=== PATIENT | female | born 1995 | race American Indian/Alaskan Native ===

== ENCOUNTER 2017-10-09 13:12 | Emergency (ER) | payer SELFPAY ==
[2017-10-09 13:20] VITALS: BP 147/96
--- NOTE | 2017-10-09 15:58 | Emergency Department Report ---
ED Female HPI - General Chief complaint: Urogenital-Female Stated complaint: VAGINAL BURNING Time Seen by Provider: 10/09/17 15:45 Source: patient Mode of arrival: Ambulatory Limitations: No Limitations - History of Present Illness Initial comments: This is a 21-year-old female nontoxic, well nourished in appearance, no acute signs of distress presents to the ED with c/o of dysuria and vaginal irritation x3 days. Patient denies any vaginal pain or swelling. Patient denies any vaginal ulcers or lesions. Patient denies any nausea, vaginal discharge, vaginal bleeding, vomiting, chest pain, shortness of breathe, fever, chills, headache, back pain, numbness, tingling, stiff neck. Patient denies any other urinary symptoms. Patient denies any allergies. PMH includes HTN. MD Complaint: dysuria -: days(s) (3) Radiation: non-radiating Severity: mild Severity scale (0 -10): 3 Quality: burning Consistency: constant Improves with: none Worsens with: urination Are you Now?: No Associated Symptoms: dysuria. denies: vaginal discharge, vaginal bleeding, abdominal pain, nausea/vomiting, fever/chills, headaches, loss of appetite, hematuria, rash, seizure, shortness of breath, syncope, weakness - Related Data Home Medications Medication Instructions Recorded Confirmed Last Taken Ferrous Sulfate [Feosol] 325 mg PO BID 03/31/16 03/31/16 03/31/16 Labetalol [Normodyne TAB] 100 mg PO BID 03/31/16 03/31/16 03/31/16 Vit-Fe Fumar-FA [ 1 tab PO QDAY 03/31/16 03/31/16 03/31/16 Vitamin] Previous Rx's Medication Instructions Recorded Last Taken Type Ibuprofen [Motrin 600 MG tab] 600 mg PO Q6H #50 tablet 04/03/16 Unknown Rx Labetalol [Normodyne TAB] 100 mg PO BID #60 tablet 04/03/16 Unknown Rx Sulfamethoxazole/Trimethoprim 1 each PO BID #14 tablet 10/09/17 Unknown Rx [Bactrim DS TAB] Allergies Allergy/AdvReac Type Severity Reaction Status Date / Time No Known Allergies Allergy Verified 07/29/15 21:35 ED Review of Systems ROS: Stated complaint: VAGINAL BURNING Other details as noted in HPI Constitutional: denies: chills, fever Eyes: denies: eye pain, eye discharge, vision change ENT: denies: ear pain, throat pain Respiratory: denies: cough, shortness of breath, wheezing Cardiovascular: denies: chest pain, palpitations Endocrine: no symptoms reported Gastrointestinal: denies: abdominal pain, nausea, diarrhea Genitourinary: urgency, dysuria, frequency. denies: hematuria, discharge Musculoskeletal: denies: back pain, joint swelling, arthralgia Skin: denies: rash, lesions Neurological: denies: headache, weakness, paresthesias Psychiatric: denies: anxiety, depression Hematological/Lymphatic: denies: easy bleeding, easy bruising ED Past Medical Hx - Past Medical History Hx Hypertension: Yes (cHTN) Hx Congestive Heart Failure: No Hx Diabetes: No Hx Deep Vein Thrombosis: No Hx Renal Disease: No Hx Sickle Cell Disease: No Hx Seizures: No Hx Asthma: No Hx COPD: No Hx HIV: No Additional medical history: murmur - Social History Smoking Status: Never Smoker Substance Use Type: None - Medications Home Medications: Home Medications Medication Instructions Recorded Confirmed Last Taken Type Ferrous Sulfate [Feosol] 325 mg PO BID 03/31/16 03/31/16 03/31/16 History Labetalol [Normodyne TAB] 100 mg PO BID 03/31/16 03/31/16 03/31/16 History Vit-Fe Fumar-FA [ 1 tab PO QDAY 03/31/16 03/31/16 03/31/16 History Vitamin] Ibuprofen [Motrin 600 MG tab] 600 mg PO Q6H #50 tablet 04/03/16 Unknown Rx Labetalol [Normodyne TAB] 100 mg PO BID #60 tablet 04/03/16 Unknown Rx Sulfamethoxazole/Trimethoprim 1 each PO BID #14 tablet 10/09/17 Unknown Rx [Bactrim DS TAB] ED Physical Exam - General Limitations: No Limitations General appearance: alert, in no apparent distress - Head Head exam: Present: atraumatic, normocephalic - Eye Eye exam: Present: normal appearance Pupils: Present: normal accommodation - ENT ENT exam: Present: normal exam, mucous membranes moist - Neck Neck exam: Present: normal inspection, full ROM. Absent: tenderness, meningismus, lymphadenopathy - Respiratory Respiratory exam: Present: normal lung sounds bilaterally. Absent: respiratory distress, wheezes, rales, rhonchi, stridor, chest wall tenderness, accessory muscle use, decreased breath sounds, prolonged expiratory - Cardiovascular Cardiovascular Exam: Present: regular rate, normal rhythm, normal heart sounds. Absent: bradycardia, tachycardia, irregular rhythm, systolic murmur, diastolic murmur, rubs, gallop - GI/Abdominal GI/Abdominal exam: Present: soft, normal bowel sounds. Absent: distended, tenderness, guarding, rebound, rigid, diminished bowel sounds - Rectal Rectal exam: Present: deferred - Extremities Exam Extremities exam: Present: normal inspection, full ROM, normal capillary refill. Absent: tenderness - Back Exam Back exam: Present: normal inspection, full ROM. Absent: tenderness, CVA tenderness (R), CVA tenderness (L), muscle spasm, paraspinal tenderness, vertebral tenderness, rash noted - Neurological Exam Neurological exam: Present: alert, oriented X3, normal gait - Psychiatric Psychiatric exam: Present: normal affect, normal mood - Skin Skin exam: Present: warm, dry, intact, normal color. Absent: rash ED Course Vital Signs 10/09/17 13:17 Temperature 98.4 F Pulse Rate 116 H Respiratory 18 Rate Blood Pressure 147/96 O2 Sat by Pulse 100 Oximetry - Reevaluation(s) Reevaluation #1: 10/09/17 15:59 Patient is speaking in full sentences with no signs of distress noted. ED Medical Decision Making - Medical Decision Making This is a 21-year-old female that presents with UTI. Patient is stable was examined by me. There is no abdominal tenderness. No pelvic pain. UA obtained. Urine culture pending. Patient is d/юлия with Bactrim. Patient was instructed to Follow-up with a primary care doctor in 3-5 days or if symptoms worsen and continue return to emergency room as soon as possible. At time of discharge, the patient does not seem toxic or ill in appearance. No acute signs of distress noted. Patient agrees to discharge treatment plan of care. No further questions noted by the patient. Critical care attestation.: If time is entered above; I have spent that time in minutes in the direct care of this critically ill patient, excluding procedure time. ED Disposition Clinical Impression: UTI (urinary tract infection) Qualifiers: Urinary tract infection type: site unspecified Hematuria presence: without hematuria Qualified Code(s): N39.0 - Urinary tract infection, site not specified Disposition: DC-01 TO HOME OR SELFCARE Is pt being admited?: No Does the pt Need Aspirin: No Condition: Stable Instructions: Urinary Tract Infection in Women (ED), Sulfamethoxazole/ Trimethoprim (By mouth) Additional Instructions: Follow-up with a primary care doctor in 3-5 days or if symptoms worsen and continue return to emergency room as soon as possible. Prescriptions: Sulfamethoxazole/Trimethoprim [Bactrim DS TAB] 1 each PO BID #14 tablet Referrals: PRIMARY CAREMD [Primary Care Provider] - 3-5 Days YADIEL JONES MD [Staff Physician] - 3-5 Days [facility] [Outside] - 3-5 Days [facility] [Outside] - 3-5 Days Forms: Work/School Release Form(ED)
[2017-10-09 16:30] LABS: Bacteria,Urine 1+ /HPF (Negative); Bilirubin,Urine NEG (Negative); Blood,Urine NEG (Negative); Color,Urine Yellow (Yellow); Mucus,Urine FEW /HPF; Protein,Urine <15 mg/dL mg/dL (Negative)
[2017-10-09 16:35] LABS: HCG Qualitative,Urine Negative (Negative)
== END 2017-10-09 16:48 | disposition home or self-care (01) ==
LOC: ED 13:12
DX: N39.0 Urinary tract infection, site not specified (principal); I10 Essential (primary) hypertension
CPT/HCPCS: 81001; 81025; 87086; 99283

== ENCOUNTER 2018-07-08 13:32 | Outpatient (CLI) | payer MEDICAID ==
[2018-07-08] MEDS ORDERED: LACTATED RINGERS 1,000 ML IV ONE (15:02)
[2018-07-08 15:52] LABS: Bacteria,Urine 2+ /HPF (Negative); Bilirubin,Urine NEG (Negative); Blood,Urine LG (Negative); Color,Urine Yellow (Yellow); Mucus,Urine FEW /HPF
--- NOTE | 2018-07-08 16:13 | Ultrasound Report ---
US OB LIMITED CLINICAL INDICATION: Female, 22 years of age. vag bleeding; rule out abruption COMPARISON: Comparison made to January 2018 study. TECHNIQUE: Several real-time grayscale and color Doppler images were obtained. Permanent images were secured for documentation. FINDINGS: The cervix measures 5.8 cm in length. The internal os appears closed. There is fluid within the cervical canal measuring 12 mm in thickness. position breech. Technologist notes umbilical cord interposed between the cervix and fetus. heart rate 146 bpm. Placenta location anterior. No placenta previa. No evidence of placental ab ruption. Normal CHAVA 18.2 cm. Impression: 1. No evidence of placental abruption or placenta previa. 2. Internal os of the cervix appears closed at this time. However, there is fluid within the cervical canal of uncertain etiology. Possibility of opening labor is not excluded. Short-term follow -up exam suggested. 3. Technologist notes positioning of umbilical cord between the fetus and internal os of the cervix. presentation breech. This document is electronically signed by Cate De La Cruz DO., July 08 2018 04:11:30 PM ET
[2018-07-08 16:47] VITALS: BP 146/72
== END 2018-07-08 16:51 | disposition home or self-care (01) ==
LOC: TRG 13:32
PROVIDERS: ATTEND Obstetrics & Gynecology
DX: O47.02 False labor before 37 completed weeks of gestation, second trimester (principal); O13.2 Gestational [pregnancy-induced] hypertension without significant proteinuria, second trimester; Z3A.23 23 weeks gestation of pregnancy
CPT/HCPCS: 59025; 76815; 81001